=== PATIENT | male | born 1960 | race Caucasian/White ===

== ENCOUNTER 2024-12-16 08:15 | Outpatient (CLI) | payer OTHER, SELFPAY ==
[2024-12-16 10:10] LABS: Hematocrit* 45.3 % (37.0-53.0); Hemoglobin* 15.1 gm/dL (13.5-17.5); Immature Granulocytes Abs Auto 0.03 K/uL (0.00-0.30); Immature Granulocytes Pct Auto 0.4 %; Lymphocytes Absolute Auto 1.79 K/uL (0.90-2.90); Mean Corpuscular HGB Conc 33 gm/dL (32-36); Mean Corpuscular Hemoglobin 27 pg (26-34); Mean Corpuscular Volume 82 fL (80-100); RDW Coefficient of Variation % 13.0 % (11.5-15.5); Red Blood Count* 5.54 m/uL (4.30-5.90); White Blood Count* 7.71 K/uL (4.50-11.00)
[2024-12-16 10:11] LABS: Slide Review Reflex No
[2024-12-16 10:38] LABS: Chloride* 95 mmol/L (96-114)
[2024-12-16 10:39] LABS: Albumin* 4.3 g/dL (3.3-5.0); Potassium* 4.6 mmol/L (3.6-5.1); Sodium* 130 mmol/L (135-149)
[2024-12-16 10:41] LABS: Blood Urea Nitrogen* 28 mg/dL (7-30); Creatinine* 1.5 mg/dL (0.5-1.5); Estimated Glomerular Filt Rate 51 ml/min
[2024-12-16 10:42] LABS: Alanine Aminotransferase* 29 U/L (4-50); Alkaline Phosphatase* 95 U/L (40-150); Anion Gap 9 mEq/L (7-15); Aspartate Amino Transferase* 29 U/L (12-35); Bilirubin Total* 0.6 mg/dL (0.1-1.5); Calcium* 9.7 mg/dL (8.4-10.6); Carbon Dioxide* 26 mmol/L (20-32); Total Protein* 8.0 g/dL (6.0-8.3)
[2024-12-16 10:51] LABS: Glucose* 508 mg/dL (60-115)
== END 2024-12-16 08:16 | disposition home or self-care (01) ==
PROVIDERS: Visit Provider Nurse Practitioner Family
DX: E11.621 Type 2 diabetes mellitus with foot ulcer (principal); E11.43 Type 2 diabetes mellitus with diabetic autonomic (poly)neuropathy; L97.512 Non-pressure chronic ulcer of other part of right foot with fat layer exposed; Z79.4 Long term (current) use of insulin; Z79.84 Long term (current) use of oral hypoglycemic drugs
CPT/HCPCS: 11042; 36415; 73630; 80053; 83036; 85025; 86140; 87070; 87186; G0463

== ENCOUNTER 2024-12-16 09:58 | Outpatient (CLI) | payer OTHER, SELFPAY ==
--- NOTE | 2024-12-16 10:15 | CRLHL7_ITS ---
For Patients: As a result of the Century Cures Act, medical imaging exams and procedure reports are released immediately into your electronic medical record. You may view this report before your referring provider. If you have questions, please contact your health care provider. Indication: diabetic foot wound Technique: Right foot 3 views Comparison: 03/28/2024 Findings: Postop changes distal 5th metatarsal and 5th toe resection noted. Chronic heterotopic change to the distal end of the remaining 5th metatarsal. No acute periostitis or acute fracture. Hammertoe deformities. Prominent calcaneal spurs. Midfoot alignment normal. Soft tissue swelling. Impression: Chronic changes to the remaining distal 5th metatarsal signifying chronic osteomyelitis. Acute osteomyelitis is difficult to exclude. MRI would be useful for further evaluation. Dictated by Fran Payne MD @ 12/17/2024 8:32:20 AM (Electronically Signed)
== END 2024-12-16 09:59 | disposition home or self-care (01) ==
LOC: RAD 09:58
PROVIDERS: Visit Provider Nurse Practitioner Family
DX: E11.621 Type 2 diabetes mellitus with foot ulcer (principal); M86.8X7 Other osteomyelitis, ankle and foot
CPT/HCPCS: 73630

== ENCOUNTER 2024-12-24 13:34 | Outpatient (CLI) | payer MEDICARE, SELFPAY | END 2024-12-24 13:35 | disposition home or self-care (01) | LOC: WOUND 13:34 | PROVIDERS: Visit Provider Nurse Practitioner Family | DX: E11.621 Type 2 diabetes mellitus with foot ulcer (principal); E11.43 Type 2 diabetes mellitus with diabetic autonomic (poly)neuropathy; L97.512 Non-pressure chronic ulcer of other part of right foot with fat layer exposed; Z79.4 Long term (current) use of insulin; Z79.84 Long term (current) use of oral hypoglycemic drugs | CPT/HCPCS: 11042 ==

== ENCOUNTER 2024-12-31 13:31 | Outpatient (CLI) | payer MEDICARE, SELFPAY | END 2024-12-31 13:32 | disposition home or self-care (01) | LOC: WOUND 13:31 | PROVIDERS: Visit Provider Family Medicine | DX: E11.621 Type 2 diabetes mellitus with foot ulcer (principal); E11.43 Type 2 diabetes mellitus with diabetic autonomic (poly)neuropathy; L97.512 Non-pressure chronic ulcer of other part of right foot with fat layer exposed; F03.90 Unspecified dementia, unspecified severity, without behavioral disturbance, psychotic disturbance, mood disturbance, and anxiety; Z79.4 Long term (current) use of insulin; Z79.84 Long term (current) use of oral hypoglycemic drugs | CPT/HCPCS: 97597 ==

== ENCOUNTER 2024-12-31 14:38 | Outpatient (CLI) | payer MEDICARE, SELFPAY ==
--- NOTE | 2024-12-31 15:30 | CRLHL7_ITS ---
For Patients: As a result of the Century Cures Act, medical imaging exams and procedure reports are released immediately into your electronic medical record. You may view this report before your referring provider. If you have questions, please contact your health care provider. CLINICAL INDICATION: Nonhealing wound of the lateral forefoot. COMPARISON IMAGING STUDIES: Radiographs 12/16/2024. TECHNICAL: Non contrast and contrast-enhanced MRI of the right forefoot. Axial, sagittal and coronal T1 and STIR images. Axial, sagittal and coronal T1 post teresa fat-sat images. 1.5 May MR scanner. 20.0 mL intravenous Dotarem administered for the postcontrast portion of the study. FINDINGS: There is a soft tissue wound along the lateral through plantar aspect of the forefoot with infiltration of the underlying soft tissues. Some increased enhancement is noted following contrast administration compatible with an element of cellulitis. There is no localized fluid collection. 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 Hypertrophic deformity involves the distal aspect of the residual 5th metatarsal bone with heterotopic ossification. Bone marrow edema like signal and enhancement is present within the 5th metatarsal shaft, without confluent effacement of fatty marrow in that region favoring reactive changes. There is low signal infiltration of the ossification associated with the distal metatarsal bone close to the plantar wound correlating with the osseous sclerosis seen radiographically. No osteomyelitis of the 1st through 4th toes. Bone marrow edema and enhancement within the proximal phalanx of the great toe could be degenerative, reactive or posttraumatic. Remote healed fracture of the proximal phalanx of the 3rd toe. First MTP joint degenerative changes. Degenerative changes at the midfoot-forefoot junction. Chronic denervation changes involving foot musculature. IMPRESSION: 1. Soft tissue wound involving the lateral to plantar lateral aspect of the forefoot. Infiltration of the soft tissues with some cellulitic change. 2. No associated fluid collection. 3. 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 Hypertrophic deformity of the distal aspect of the residual 5th metatarsal bone with associated heterotopic ossification. Sclerosis involving the ossification associated with the distal metatarsal bone, close to the plantar wound. Chronic osteomyelitis not excluded. There is some bone marrow edema and intramedullary enhancement involving the shaft of the 5th metatarsal bone without confluent effacement of fatty marrow favoring reactive marrow changes within the shaft. Dictated by Eliseo Kennedy MD @ 01/03/2025 11:06:09 AM (Electronically Signed)
== END 2024-12-31 14:39 | disposition home or self-care (01) ==
LOC: MRI 14:39
PROVIDERS: Visit Provider Nurse Practitioner Family
DX: E11.621 Type 2 diabetes mellitus with foot ulcer (principal); E11.43 Type 2 diabetes mellitus with diabetic autonomic (poly)neuropathy; L97.512 Non-pressure chronic ulcer of other part of right foot with fat layer exposed; F03.90 Unspecified dementia, unspecified severity, without behavioral disturbance, psychotic disturbance, mood disturbance, and anxiety; Z79.4 Long term (current) use of insulin; Z79.84 Long term (current) use of oral hypoglycemic drugs
CPT/HCPCS: 73720; 97597; A9575

== ENCOUNTER 2025-01-07 10:53 | Outpatient (CLI) | payer MEDICARE, SELFPAY | END 2025-01-07 10:54 | disposition home or self-care (01) | LOC: WOUND 10:53 | PROVIDERS: Visit Provider Nurse Practitioner Family | DX: E11.621 Type 2 diabetes mellitus with foot ulcer (principal); E11.43 Type 2 diabetes mellitus with diabetic autonomic (poly)neuropathy; L97.512 Non-pressure chronic ulcer of other part of right foot with fat layer exposed; F03.90 Unspecified dementia, unspecified severity, without behavioral disturbance, psychotic disturbance, mood disturbance, and anxiety; Z79.4 Long term (current) use of insulin; Z79.84 Long term (current) use of oral hypoglycemic drugs | CPT/HCPCS: 11042 ==

== ENCOUNTER 2025-01-12 09:03 | Outpatient (CLI) | payer MEDICARE, SELFPAY ==
[2025-01-12 10:49] LABS: Erythrocyte SedimentationRate* 10 mm/hr (2-15)
== END 2025-01-12 09:04 | disposition home or self-care (01) ==
LOC: WOUND 09:03
PROVIDERS: Visit Provider Nurse Practitioner Family
DX: E11.621 Type 2 diabetes mellitus with foot ulcer (principal); E11.43 Type 2 diabetes mellitus with diabetic autonomic (poly)neuropathy; L97.512 Non-pressure chronic ulcer of other part of right foot with fat layer exposed; F03.90 Unspecified dementia, unspecified severity, without behavioral disturbance, psychotic disturbance, mood disturbance, and anxiety; Z79.4 Long term (current) use of insulin; Z79.84 Long term (current) use of oral hypoglycemic drugs
CPT/HCPCS: 11042; 36415; 85651; 86140

== ENCOUNTER 2025-01-21 13:45 | Outpatient (CLI) | payer MEDICARE, SELFPAY | END 2025-01-21 13:46 | disposition home or self-care (01) | LOC: WOUND 13:45 | PROVIDERS: Visit Provider Nurse Practitioner Family | DX: E11.621 Type 2 diabetes mellitus with foot ulcer (principal); E11.43 Type 2 diabetes mellitus with diabetic autonomic (poly)neuropathy; L97.512 Non-pressure chronic ulcer of other part of right foot with fat layer exposed; F03.90 Unspecified dementia, unspecified severity, without behavioral disturbance, psychotic disturbance, mood disturbance, and anxiety; Z79.4 Long term (current) use of insulin; Z79.84 Long term (current) use of oral hypoglycemic drugs | CPT/HCPCS: 11042 ==

== ENCOUNTER 2025-01-28 13:38 | Outpatient (CLI) | payer MEDICARE, SELFPAY | END 2025-01-28 13:39 | disposition home or self-care (01) | LOC: WOUND 13:38 | PROVIDERS: Visit Provider Nurse Practitioner Family | DX: E11.621 Type 2 diabetes mellitus with foot ulcer (principal); E11.43 Type 2 diabetes mellitus with diabetic autonomic (poly)neuropathy; L97.411 Non-pressure chronic ulcer of right heel and midfoot limited to breakdown of skin; F03.90 Unspecified dementia, unspecified severity, without behavioral disturbance, psychotic disturbance, mood disturbance, and anxiety; Z79.4 Long term (current) use of insulin; Z79.84 Long term (current) use of oral hypoglycemic drugs | CPT/HCPCS: 97597 ==

== ENCOUNTER 2025-02-04 13:38 | Outpatient (CLI) | payer MEDICARE, SELFPAY | END 2025-02-04 13:39 | disposition home or self-care (01) | LOC: WOUND 13:38 | DX: E11.621 Type 2 diabetes mellitus with foot ulcer (principal); E11.43 Type 2 diabetes mellitus with diabetic autonomic (poly)neuropathy; L97.411 Non-pressure chronic ulcer of right heel and midfoot limited to breakdown of skin; F03.90 Unspecified dementia, unspecified severity, without behavioral disturbance, psychotic disturbance, mood disturbance, and anxiety; Z79.4 Long term (current) use of insulin; Z79.84 Long term (current) use of oral hypoglycemic drugs | CPT/HCPCS: G0463 ==

== ENCOUNTER 2025-02-18 13:48 | Outpatient (CLI) | payer MEDICARE, SELFPAY | END 2025-02-18 13:49 | disposition home or self-care (01) | LOC: WOUND 13:48 | PROVIDERS: Visit Provider Nurse Practitioner Family | DX: E11.621 Type 2 diabetes mellitus with foot ulcer (principal); E11.43 Type 2 diabetes mellitus with diabetic autonomic (poly)neuropathy; L97.518 Non-pressure chronic ulcer of other part of right foot with other specified severity; F03.90 Unspecified dementia, unspecified severity, without behavioral disturbance, psychotic disturbance, mood disturbance, and anxiety | CPT/HCPCS: G0463 ==